=== PATIENT | female | born 1970 | race Caucasian/White ===

== ENCOUNTER 2018-04-21 09:54 | Emergency (ER) | payer MEDICARE, MEDICAID ==
[~2018-04-21] VITALS: Ht 142.2 cm; Wt 87.5 kg
[~2018-04-21 09:54] MED LIST: ACETAMINOPHEN-1 EAC1 PO; AUGMENTIN 875875 MG PO; CENTRUM SILVER1 EAC2 PO; FLONASE 0.05%50 MCG NASAL; OMEPRAZOLE20 M2 PO; SENNA PO; VENTOLIN HFA 1818 GM INH; ZOLOFT25 MG PO; ZPAK PO; [UNRECOGNIZED DRUG - OTHER] PO
[2018-04-21] MEDS ORDERED: TRAMADOL 50 MG50 MG PO (10:08)
[2018-04-21] MEDS ORDERED: KEFLEX500 M1 PO (10:28)
[2018-04-21 10:39] VITALS: BP 106/63
== END 2018-04-21 10:49 | disposition home or self-care (01) ==
LOC: M.ERS 09:54
DX: S50.862A Insect bite (nonvenomous) of left forearm, initial encounter (principal); J45.909 Unspecified asthma, uncomplicated; W57.XXXA Bitten or stung by nonvenomous insect and other nonvenomous arthropods, initial encounter; Y93.89 Activity, other specified; Y92.89 Other specified places as the place of occurrence of the external cause; Y99.8 Other external cause status

== ENCOUNTER → 2018-10-08 | Outpatient (CLI) | payer MEDICARE, MEDICAID ==
[~2018-10-08] MED LIST changes: +KEFLEX500 M1 PO; +TRAMADOL 50 MG50 MG PO
== END ==
LOC: M.RAD 09-16 07:40
DX: Z12.31 Encounter for screening mammogram for malignant neoplasm of breast (principal)